=== PATIENT | female | born 1965 | race Caucasian/White ===

== ENCOUNTER 2017-01-14 18:42 | Inpatient (IN) | payer SELFPAY ==
[~2017-01-14] VITALS: Ht 154.9 cm; Wt 63.0 kg
[2017-01-14 18:48] VITALS: BP 143/78
--- NOTE | 2017-01-14 20:15 | NUR ---
52/F W/C/O PRESENT TO ER C/O ABDOMINAL PAIN x 5 DAYS. PT STATES SHE WAS SEEN AT URGENT CARE YESTERDAY. PAIN 8/10 ACHING AND RADIATING TO UPPER BACK. PT DENIES N/V/D. HX: NONE MEDS: FAMOTIDINE 20MG
--- NOTE | 2017-01-14 20:21 | NUR ---
PT TAKEN FOR CT SCAN VIA WHEELCHAIR.
[2017-01-14 20:48] LABS: BASOPHILS # (AUTO) 0.1 K/uL (0.00-0.22); BASOPHILS % (AUTO) 0.5 % (0.0-2.0); EOSINOPHILS # (AUTO) 0.1 K/uL (0-0.4); EOSINOPHILS % (AUTO) 0.6 % (0.0-4.0); HEMATOCRIT 36.7 % (36-48); HEMOGLOBIN 12.4 g/dL (12.0-16.0); LYMPHOCYTES # (AUTO) 0.8 K/uL (2.5-16.5); LYMPHOCYTES % (AUTO) 6.2 % (20.5-51.1); MEAN CORPUSCULAR HEMOGLOBIN 29 pg (27-31); MEAN CORPUSCULAR HGB CONC 34 g/dL (33-37); MEAN CORPUSCULAR VOLUME 86 fL (80-94); MONOCYTES # (AUTO) 0.6 K/uL (0.8-1.0); MONOCYTES % (AUTO) 4.8 % (1.7-9.3); NEUTROPHILS # (AUTO) 11.9 K/uL (1.8-7.7); NEUTROPHILS % (AUTO) 87.9 % (42.2-75.2); PLATELET COUNT (AUTO) 295 K/uL (140-450); RED BLOOD CELL COUNT(AUTO) 4.28 MIL/uL (4.20-5.40); RED CELL DISTRIBUTION WIDTH 12.1 % (11.6-13.7); WHITE BLOOD COUNT (AUTO) 13.5 K/uL (4.8-10.8)
--- NOTE | 2017-01-14 20:52 | NUR ---
PT RESTING IN BED, NO S/S OF DISTRESS NOTED AT THE MOMENT. WILL CONT TO MONITOR.FAMILY AT BEDSIDE.
[2017-01-14] MEDS ORDERED: ONDANSETRON 4 MG/2 ML VIAL IVP ONE (21:00)
[2017-01-14] MEDS ORDERED: MORPHINE SULFATE 4 MG/ML SYR IVP ONE (21:00)
[2017-01-14] MEDS ORDERED: metroNIDAZOLE 500 MG/NS PREMIX 100 ML IV ONE (21:00)
[2017-01-14] MEDS ORDERED: NACL 0.9% 1,000 ML IV ONE (21:00)
[2017-01-14 21:05] LABS: ANION GAP 15.3 (8-16); CREATININE 0.7 mg/dL (0.6-1.3); POTASSIUM 3.3 mmol/L (3.5-5.1)
[2017-01-14 21:12] LABS: ALBUMIN 3.7 g/dL (3.4-5.0); TOTAL BILIRUBIN 0.9 mg/dL (0.0-1.0)
[2017-01-14] MEDS ORDERED: cefTRIAXone 1,000 MG VIAL ONE (21:15)
[2017-01-14] MEDS ORDERED: KETOROLAC 15 MG/ML VIAL IVP ONE (21:15)
[2017-01-14 21:29] LABS: APPEARANCE,URINE CLEAR (CLEAR); BILIRUBIN,URINE NEGATIVE (NEGATIVE); BLOOD, URINE 2+ (NEGATIVE); COLOR,URINE YELLOW (YELLOW); LEUKOCYTE ESTERASE ,URINE NEGATIVE (NEGATIVE); NITRITE, URINE NEGATIVE (NEGATIVE); UGLUCOSE NEGATIVE (NEGATIVE)
--- NOTE | 2017-01-14 21:47 | NUR ---
RESIDENT EVALUATING PT AT BEDSIDE.
[2017-01-14 21:57] LABS: RBC,URINE 11-20 (MOD) /HPF (0-5); WBC,URINE 0-5 (RARE) /HPF (0-5)
--- NOTE | 2017-01-14 22:10 | NUR ---
Patient will be admitted to care of DR TRIANA. Admited to TELEMETRY/ICU 3. Will go to room ICU 3. Belongings list completed. Report to CARY ADAN.
--- NOTE | 2017-01-14 22:22 | NUR ---
PT TRASFERED TO FLOOR VIA [facility], ACCOMPANIED BY CHARGE NURSE AND EMT.
--- NOTE | 2017-01-14 22:29 | NUR ---
PT IS BEING ADMITTED TO ICU BED 3 VIA GURNEY WITH 2 ER STAFF. PT IS ABLE TO WALK FROM THE GURNEY TO THE ICU BED WITH MINIMAL ASSISTANCE. WILL START ADMISSION ASSESSMENT.
--- NOTE | 2017-01-14 23:08 | NUR ---
PT'S AT BED SIDE. COMPLETED ADMISSION ASSESSMENT.
[2017-01-15] VITALS: BP 118/81
--- NOTE | 2017-01-15 | NUR ---
PT SLEEPING. ON CARDIAC MONITORING AND STABLE. CALL LIGHT IN REACH. BED TO THE LOWEST POSITION. WILL CONTINUE TO MONITOR.
[2017-01-15] MEDS ORDERED: HYDROcodone/APAP 7.5/325 MG 1 TAB PO PRN (01:25)
[2017-01-15] MEDS ORDERED: ACETAMINOPHEN 325 MG TAB PO PRN (01:25)
[2017-01-15] MEDS ORDERED: MORPHINE SULFATE 2 MG/ML SYR IVP PRN (01:25)
[2017-01-15] MEDS ORDERED: ONDANSETRON 4 MG/2 ML VIAL IM/IVP PRN (01:25)
[2017-01-15] MEDS ORDERED: DOCUSATE SODIUM 100 MG GELCAP PO PRN (01:25)
[2017-01-15 01:58] LABS: FREE T4 (FREE THYROXINE) 1.64 ng/dL (0.76-1.46); PHOSPHORUS 3.1 mg/dL (2.5-4.9); THYROID STIMULATING HORMONE 3.38 uIU/mL (0.34-3.74)
[2017-01-15] MEDS: NACL 0.9% 1,000 ML IV SCH ×3 (03:20→20:10)
--- NOTE | 2017-01-15 03:23 | NUR ---
NEW ORDERS RECEIVED FROM DR. ROMAN. PT MADE AWARE. PT IVF STARTED ORDERED TO LEFT AC PERIPHERAL LINE. PATENT AND NO COMPLICATIONS NOTED. WILL CONTINUE TO MONITOR.
[2017-01-15 04:00] VITALS: BP 111/74
[2017-01-15 05:10] LABS: BASOPHILS # (AUTO) 0.1 K/uL (0.00-0.22); BASOPHILS % (AUTO) 1.5 % (0.0-2.0); EOSINOPHILS # (AUTO) 0.1 K/uL (0-0.4); EOSINOPHILS % (AUTO) 1.4 % (0.0-4.0); HEMATOCRIT 33.8 % (36-48); HEMOGLOBIN 11.1 g/dL (12.0-16.0); LYMPHOCYTES # (AUTO) 1.3 K/uL (2.5-16.5); MEAN CORPUSCULAR HEMOGLOBIN 29 pg (27-31); MEAN CORPUSCULAR HGB CONC 33 g/dL (33-37); MEAN CORPUSCULAR VOLUME 88 fL (80-94); MONOCYTES # (AUTO) 0.5 K/uL (0.8-1.0); MONOCYTES % (AUTO) 9.7 % (1.7-9.3); NEUTROPHILS # (AUTO) 3.6 K/uL (1.8-7.7); NEUTROPHILS % (AUTO) 64.4 % (42.2-75.2); PLATELET COUNT (AUTO) 240 K/uL (140-450); RED BLOOD CELL COUNT(AUTO) 3.85 MIL/uL (4.20-5.40); RED CELL DISTRIBUTION WIDTH 12.4 % (11.6-13.7); WHITE BLOOD COUNT (AUTO) 5.6 K/uL (4.8-10.8)
--- NOTE | 2017-01-15 05:23 | NUR ---
PT SLEEPING. CONTINUING WITH CARDIAC MONITORING. IVF RUNNING TO LEFT AC PERIPHERAL LINE WITHOUT ANY COMPLICATION. NO ACUTE DISTRESS NOTED. BED IS TO THE LOWEST POSITION AND CALL LIGHT IN REACH. WILL CONTINUE TO MONITOR.
[2017-01-15 05:52] LABS: ANION GAP 12.4 (8-16); CARBON DIOXIDE 25.4 mmol/L (21-32); CREATININE 0.6 mg/dL (0.6-1.3); POTASSIUM 3.8 mmol/L (3.5-5.1); PROTHROMBIN TIME 9.9 secs (10.8-13.4)
--- NOTE | 2017-01-15 07:13 | NUR ---
GAVE REPORT TO CARY LOZANO FOR CONTINUITY OF CARE. PT HAS NO ACUTE DISTRESS AT THIS TIME.
--- NOTE | 2017-01-15 07:30 | NUR ---
RECEIVED REPORT FROM TELESERVICES REPRESENTATIVE RN, PT AWAKE, ALERT, AND ORIENTED. ON ROOM AIR, NO S/S OF RESPIRATORY DISTRESS NOTED. ABDOMEN SOFT, DENIES PAIN AT THIS TIME. IV SITE INTACT AND PATENT RUNNING NS AT 60 ML/HR. PT STATED " I HAVE WIRED FEELING IN MY STOMACH, IT IS NOT PAIN, MAY BE IT IS DUE TO THE ANTIBIOTICS". PT ABLE TO MOVE ALL HER EXTREMITIES, POC EXPLAINED TO PT, PT VERBALIZED UNDERSTANDING. WILL CONTINUE TO MONITOR.
[2017-01-15 08:00] VITALS: BP 114/71
--- NOTE | 2017-01-15 09:30 | NUR ---
EXPLAINED TO PT SHE MAY NEED SURGERY, PT WANTS TO TALK TO SURGEON REGARDING THE SURGERY. WILL PAGE .
--- NOTE | 2017-01-15 10:20 | NUR ---
AT BEDSIDE TO SPEAK WITH PT REGARDING SURGERY, TRANSLATION PHONE USED, VERIFICATION CLERK NUMBER [id number], EXPLAINED TO PT RISKS AND BENEFITS OF SURGERY, ALL PROCEDURES DISCUSSED, ALL QUESTIONS ANSWERED.
[2017-01-15 12:00] VITALS: BP 155/71
--- NOTE | 2017-01-15 12:00 | NUR ---
PT SIGNED CONSENT, NOTIFIED . PER , PT WILL HAVE SURGERY AT 0500PM
[2017-01-15] MEDS: PIPER/TAZO 3.375GM/D5W PREMIX 50 ML IV SCH ×2 (13:04→20:10)
[2017-01-15] MEDS ORDERED: POTASSIUM CHLORIDE 10 MEQ TABER PO SCH (14:00)
--- NOTE | 2017-01-15 14:59 | NUR ---
PT RESTING IN BED, NO S/S OF RESPIRATORY DISTRESS NOTED. NO C/O PAIN AT THIS TIME. WILL CONTINUE TO MONITOR.
[2017-01-15 15:57] VITALS: BP 135/79
--- NOTE | 2017-01-15 16:15 | NUR ---
PT RESTING IN BED, AT BEDSIDE, NOTIFIED PT SHE WILL HAVE SURGERY TOMORROW MORNING AT 0830 AM PER . PT VERBALIZED UNDERSTANDING.
--- NOTE | 2017-01-15 18:15 | NUR ---
PT AWAKE, ALERT, AND ORIENTED. NO S/S OF RESPIRATORY DISTRESS NOTED. PT'S AT BEDSIDE.
--- NOTE | 2017-01-15 19:09 | NUR ---
REPORT GIVEN TO PICKER OPERATOR RN. PT IN STABLE CONDITION AT THIS TIME. HR 68, BP 139/98. O2 SAT 99%
--- NOTE | 2017-01-15 19:30 | NUR ---
ASSUMED CARE OF PT.INITIAL ASSESSMENT COMPLETED.PT AWAKE ALERT AND ORIENTED X4.SR ON MONITOR.ON ROOM AIR.NO SOB NOTED.PERIPHERAL IV TO LT AC G20 INTACT INFUSING ORDERED IVF.PT ABLE TO MEDINA WITHOUT DIFFICULTY.DENIES N/V,DENIES PAIN.ABLE TO VOID FREELY.SKIN INTACT
[2017-01-15 20:00] VITALS: BP 137/75
--- NOTE | 2017-01-15 22:06 | NUR ---
PT STILL AWAKE, AT BEDSIDE. VOIDED FREELY USING BEDSIDE COMMODE.DENIES PAIN.NO SOB NOTED.
[2017-01-16] VITALS: BP 138/75
--- NOTE | 2017-01-16 | NUR ---
PT AWAKE; AT BEDSIDE.DENIES SOB.DENIES PAIN.
--- NOTE | 2017-01-16 03:26 | NUR ---
PT ASLEEP.NO S/SX OF RESP DISTRESS NOTED.SR ON MONITOR.NO SIGNS OF PAIN NOTED.
[2017-01-16 04:00] VITALS: BP 109/63
[2017-01-16] MEDS: PIPER/TAZO 3.375GM/D5W PREMIX 50 ML IV SCH ×3 (04:51→20:29)
[2017-01-16 06:15] LABS: T4 (THYROXINE) 12.4 ug/dL (4.5-12.0)
--- NOTE | 2017-01-16 06:23 | NUR ---
PT ASLEEP;EASILY AROUSABLE.DENIES PAIN THIS SHIFT.PERIPHERAL IV INTACT INFUSING ORDERED IVF.PT ABLE TO SELF TURN.
[2017-01-16 08:30] VITALS: BP 113/73
--- NOTE | 2017-01-16 08:30 | NUR ---
ASSUMED CARE OF PT FROM DONAL TOWNSEND.PT AWAKE, ALERT, AND ORIENTED. ON ROOM AIR, NO S/S OF RESPIRATORY DISTRESS NOTED. ABDOMEN SOFT, DENIES PAIN AT THIS TIME. IV SITE TO LEFT AC # 20 INTACT AND PATENT RUNNING NS AT 60 ML/HR. PT WAS SCHEDULED FOR SURGERY TODAY, PRE-OP CARE AND INSTRUCTION DONE. PT ABLE TO MOVE ALL HER EXTREMITIES, POC EXPLAINED TO PT, PT VERBALIZED UNDERSTANDING. CALL LIGHT IN REACH, WILL CONTINUE TO MONITOR.
[2017-01-16] MEDS ORDERED: ONDANSETRON 4 MG/2 ML VIAL ONE (10:05)
[2017-01-16] MEDS ORDERED: DEXAMETHASONE 4 MG/ML VIAL ONE (10:05)
[2017-01-16] MEDS ORDERED: SEVOFLURANE 250 ML BTL INH ONE (10:05)
[2017-01-16] MEDS ORDERED: SUCCINYLCHOLINE CHLORIDE 200 MG/10 ML VIAL IVP ONE (10:05)
[2017-01-16] MEDS ORDERED: ROCURONIUM 50 MG/5 ML VIAL IV ONE (10:05)
[2017-01-16] MEDS ORDERED: PROPOFOL 200 MG/20 ML VIAL IV ONE (10:05)
--- NOTE | 2017-01-16 10:10 | NUR ---
PT AOX4, NO SOB, ROOM AIR. LEFT FOR SURGERY, ACCOMPANIED WITH OR NURSE.
[2017-01-16] MEDS ORDERED: MIDAZOLAM 2 MG/2 ML VIAL ONE (10:24)
[2017-01-16] MEDS ORDERED: fentaNYL 0.05 MG/ML VIAL ONE (10:25)
[2017-01-16] MEDS ORDERED: MEPERIDINE 50 MG/ML SYR ONE (10:25)
[2017-01-16] MEDS ORDERED: BUPIVACAINE-MPF 0.25% 30 ML VIAL INJ ONE (10:26)
[2017-01-16] MEDS ORDERED: LACTATED RINGERS 1,000 ML IV SCH (10:49)
[2017-01-16] MEDS ORDERED: HYDROmorphone 1 MG/ML AMP IVP PRN (10:50)
[2017-01-16] MEDS ORDERED: ONDANSETRON 4 MG/2 ML VIAL IVP PRN (10:50)
[2017-01-16] MEDS ORDERED: MEPERIDINE 25 MG/ML SYR IVP PRN (10:50)
[2017-01-16] MEDS ORDERED: diphenhydrAMINE 50 MG/ML VIAL IVP PRN (10:50)
--- NOTE | 2017-01-16 12:50 | NUR ---
PT BACK TO ICU, PT IS SLEEPY BUT EASILY AWAKING BY ASSESSMENT. ORIENTED PT SHE IS BACK TO ICU AFTER SURGERY. VITALS STABLE AT THIS TIME.
[2017-01-16] MEDS: DEXT 5% / NACL 0.45% 1,000 ML IV SCH ×2 (13:00→22:03)
--- NOTE | 2017-01-16 15:39 | NUR ---
PT IS AWAKE, ALERT, AND ORIENTED AT THIS TIME. NO S/S OF RESPIRATORY DISTRESS NOTED. PT DENIES PAIN AT THIS TIME.
[2017-01-16 16:00] VITALS: BP 122/75
--- NOTE | 2017-01-16 17:27 | NUR ---
ASSISTED PT GET OUT OF BED AND AMBULATE, PT HAS STEADY GAIT, NO SOB.
--- NOTE | 2017-01-16 18:39 | NUR ---
PT RESTING IN BED, DINNER TRAY ATE 75%. PT'S AT BEDSIDE.
[2017-01-16 20:00] VITALS: BP 117/73
--- NOTE | 2017-01-16 21:50 | NUR ---
pt transferred to telemetry unit in stable condition.monitor attached.no sob on room air.peripheral iv intact. pts at bedside.to room 112 Lucie richard rn also in the room.
--- NOTE | 2017-01-16 21:50 | NUR ---
RECEIVED PT FROM ICU, CARY MANSFIELD . AWAKE, ALERT AND ORIENTED X4. AMBULATORY WITH SOME ASSIST. ON TELE MONITOR. S/P LAP HAIM . 5X SMALL INCISIONS, ON THE LOWER ABDOMEN. WITH GLUE , INFORMATION SERVICES ASSISTANT. NO REDNESS AND BLEEDING NOTED. WITH IV ACCESS ON LT AC#20. CLEAR AND PATENT. . PLAN OF CARE DISCUSSED AN VERBALIZED UNDERSTANDING. CALL LIGHT PLACED WITHIN EASY REACH. WILL CONTINUE TO MONITOR.
--- NOTE | 2017-01-16 23:00 | NUR ---
AWAKE,NO C/O ANY DISCOMFORT NOTED. WILL CONTINUE TO MONITOR.
[2017-01-17 00:08] VITALS: BP 130/72
--- NOTE | 2017-01-17 01:10 | NUR ---
MADE ROUNDS. PT SLEEPING. NO S/S FO ANY PAIN NOTED. WILL CONTINUE TO MONITOR.
--- NOTE | 2017-01-17 03:00 | NUR ---
MADE ROUNDS . ASLEEP. NO DISCOMFORT NOTED.
[2017-01-17 04:15] VITALS: BP 125/80
--- NOTE | 2017-01-17 04:30 | NUR ---
ASSISTED UP TO THE BATHROOM. VOIDED. NO C/O ANY DISCOMFORT NOTED.
[2017-01-17] MEDS: PIPER/TAZO 3.375GM/D5W PREMIX 50 ML IV SCH ×3 (05:31→21:44)
[2017-01-17 05:43] LABS: BASOPHILS # (AUTO) 0.1 K/uL (0.00-0.22); EOSINOPHILS # (AUTO) 0.1 K/uL (0-0.4); EOSINOPHILS % (AUTO) 0.8 % (0.0-4.0); HEMATOCRIT 34.9 % (36-48); HEMOGLOBIN 11.7 g/dL (12.0-16.0); LYMPHOCYTES # (AUTO) 1.7 K/uL (2.5-16.5); LYMPHOCYTES % (AUTO) 16.8 % (20.5-51.1); MEAN CORPUSCULAR HEMOGLOBIN 29 pg (27-31); MEAN CORPUSCULAR HGB CONC 33 g/dL (33-37); MEAN CORPUSCULAR VOLUME 87 fL (80-94); MONOCYTES # (AUTO) 0.7 K/uL (0.8-1.0); MONOCYTES % (AUTO) 6.6 % (1.7-9.3); NEUTROPHILS # (AUTO) 7.4 K/uL (1.8-7.7); NEUTROPHILS % (AUTO) 74.8 % (42.2-75.2); PLATELET COUNT (AUTO) 307 K/uL (140-450); RED BLOOD CELL COUNT(AUTO) 4.02 MIL/uL (4.20-5.40); RED CELL DISTRIBUTION WIDTH 12.4 % (11.6-13.7)
--- NOTE | 2017-01-17 06:30 | NUR ---
MADE ROUNDS. ASLEEP. NO S/S OF ANY DISCOMFORT.
[2017-01-17 06:38] LABS: ALBUMIN 2.8 g/dL (3.4-5.0); ANION GAP 10.6 (8-16); CARBON DIOXIDE 24.2 mmol/L (21-32); CREATININE 0.7 mg/dL (0.6-1.3); POTASSIUM 3.8 mmol/L (3.5-5.1); TOTAL BILIRUBIN 0.4 mg/dL (0.0-1.0)
--- NOTE | 2017-01-17 07:20 | NUR ---
ENDORSED PT IN STABLE CONDITION TO AM NURSE FOR CONTINUITY OF CARE.
--- NOTE | 2017-01-17 07:21 | NUR ---
RECEIVED REPORT FROM NIGHT NURSE CAM AT PT BEDSIDE. PATIENT RESTING IN BED. ALERT AND ORIENTED. FOLLOWS COMMANDS. S/P LAP HAIM. DENIES ABDOMINAL PAIN, DISCOMFORT WHEN SITTING UP OR WALKING. PATIENT HAS 5X ABDOMINAL INCISIONS, GLUED INTACT. IV SITE PATENT AND INTACT. MADE AWARE OF UPCOMING PLANS AND PROCEDURES. NO S/S OF ACUTE DISTRESS.
[2017-01-17 08:00] VITALS: BP 111/70
--- NOTE | 2017-01-17 08:00 | NUR ---
Patient's Plan of Care was discussed and reviewed with A P MECHANIC: GUERDA
--- NOTE | 2017-01-17 08:15 | NUR ---
ASSISTED PATIENT IN AMBULATION. PATIENT TOLERATED PO BREAKFAST LIQUID DIET. SCDS IN PLACE. PATIENT VOIDED.
[2017-01-17] MEDS: DEXT 5% / NACL 0.45% 1,000 ML IV SCH ×2 (10:00→17:50)
--- NOTE | 2017-01-17 10:10 | NUR ---
PATIENT ASSISTED IN AMBULATION AROUND NURSING UNIT. TOLERATED WELL. DENIES NAUSEA, DIZZINESS. INCISIONS INTACT. ASSISTED PT BACK IN BED, PT RESTING, NO S/S OF ACUTE DISTRESS.
--- NOTE | 2017-01-17 12:20 | NUR ---
PATIENT'S DIET ORDER CHANGED PER MD. PATIENT UNABLE TO TOLERATE REGULAR DIET AT THIS TIME, STATED NO APPETITE. PATIENT SITTING UP AT BEDSIDE, NO S/S OF ACUTE DISTRESS NOTED.
--- NOTE | 2017-01-17 14:55 | NUR ---
ENDORSED PLAN OF CARE TO INTERNATIONAL LOGISTICS MANAGER GUERDA Hunter AT PT BEDSIDE. NO S/S OF ACUTE DISTRESS NOTED.
--- NOTE | 2017-01-17 15:20 | NUR ---
PT IS AMB ON UNIT AND SHOWS NO S/S OF ACUTE DISTRESS ON ROOM AIR. NOTED [address] WITH NO S/S OF INFECTIONS. PT DENIES PAIN AND SOB. PT AWARE OF POC FOR TODAY. WILL CONTINUE TO MONITOR.
[2017-01-17 16:00] VITALS: BP 133/74
--- NOTE | 2017-01-17 16:10 | NUR ---
PATIENT AMB ON UNIT STILL WITH PRESENT AT SIDE.
--- NOTE | 2017-01-17 17:07 | NUR ---
PT IS AMB ON UNIT WITH PRESENT AT SIDE. PT SHOWS NO S/S OF ACUTE DISTRESS ON ROOM AIR. PT DENIES PAIN.
--- NOTE | 2017-01-17 19:25 | NUR ---
GAVE REPORT TO NIGHT NURSE. PT AAOX4 AND SHOWS NO S/S OF ACUTE DISTRESS ON ROOM AIR. PT ENDORSED IN STABLE CONDITION.
--- NOTE | 2017-01-17 19:26 | NUR ---
RECEIVED REPORT FROM DAY NURSE, PT IS IN STABLE CONDITION. PT IS AAOX4, PT IS ON RA, PT HAS 5X ABD INCISION, GLUED. PT HAS IV TO L AC 20 G, PATENT AND INTACT. RESPIRATIONS ARE EVEN AND UNLABORED, BOWEL SOUNDS PRESENT. INITIAL ASSESSMENT COMPLETED, PLAN OF CARE DISCUSSED WITH PT. PT VERBALIZED UNDERSTANDING. ALL SAFETY PRECAUTIONS MET, CALL LIGHT WITHIN REACH, WILL CONTINUE TO MONITOR.
--- NOTE | 2017-01-17 19:59 | NUR ---
PT AMBULATING AROUND THE HALLWAYS, NO S/S OF DISTRESS NOTED.
[2017-01-17 20:00] VITALS: BP 155/91
--- NOTE | 2017-01-17 21:50 | NUR ---
PTS DUE MEDICATIONS WERE GIVEN, PT TOLERATED WELL.
--- NOTE | 2017-01-17 23:30 | NUR ---
PT AMBULATING AROUND THE HALLWAY, NO S/S OF DISTRESS NOTED.
[2017-01-18] VITALS: BP 132/71
--- NOTE | 2017-01-18 00:10 | NUR ---
PT BACK IN BED WITH SCDS APPLIED. CALL LIGHT IS WITHIN REACH, ALL SAFETY PRECAUTIONS MET, WILL CONTINUE TO MONITOR,
--- NOTE | 2017-01-18 01:10 | NUR ---
PT STATES SHE IS FEELING COLD AND SHAKY, TEMP CHECKED AND WNL, BS CHECKED AND WNL. NO SWELLING OR REDNESS NOTED AT INCISION SITE. DR. ROMAN MADE AWARE WILL CONTINUE TO MONITOR.
[2017-01-18] MEDS: DEXT 5% / NACL 0.45% 1,000 ML IV SCH (01:38)
[2017-01-18] MEDS: PIPER/TAZO 3.375GM/D5W PREMIX 50 ML IV SCH ×2 (05:29→12:07)
[2017-01-18 06:21] LABS: BASOPHILS # (AUTO) 0.1 K/uL (0.00-0.22); BASOPHILS % (AUTO) 0.8 % (0.0-2.0); EOSINOPHILS # (AUTO) 0.1 K/uL (0-0.4); HEMATOCRIT 35.8 % (36-48); LYMPHOCYTES # (AUTO) 1.4 K/uL (2.5-16.5); LYMPHOCYTES % (AUTO) 15.4 % (20.5-51.1); MEAN CORPUSCULAR HEMOGLOBIN 29 pg (27-31); MEAN CORPUSCULAR HGB CONC 34 g/dL (33-37); MEAN CORPUSCULAR VOLUME 87 fL (80-94); MONOCYTES # (AUTO) 0.6 K/uL (0.8-1.0); MONOCYTES % (AUTO) 6.7 % (1.7-9.3); NEUTROPHILS # (AUTO) 6.7 K/uL (1.8-7.7); NEUTROPHILS % (AUTO) 76.1 % (42.2-75.2); PLATELET COUNT (AUTO) 334 K/uL (140-450); RED BLOOD CELL COUNT(AUTO) 4.11 MIL/uL (4.20-5.40); RED CELL DISTRIBUTION WIDTH 12.3 % (11.6-13.7); WHITE BLOOD COUNT (AUTO) 8.9 K/uL (4.8-10.8)
[2017-01-18 06:43] LABS: ALBUMIN 3.2 g/dL (3.4-5.0); CARBON DIOXIDE 28.6 mmol/L (21-32); CREATININE 0.7 mg/dL (0.6-1.3); POTASSIUM 3.6 mmol/L (3.5-5.1); TOTAL BILIRUBIN 0.3 mg/dL (0.0-1.0)
--- NOTE | 2017-01-18 07:41 | NUR ---
ENDORSED PLAN OF CARE TO DAY NURSE FOR CONTINUITY OF CARE, NO S/S OF DISTRESS NOTED
--- NOTE | 2017-01-18 07:42 | NUR ---
RECEIVED REPORT FROM NIGHT RN AT PT BEDSIDE. PT SITTING UP IN BED. NO S/S OF ACUTE DISTRESS. IV SITE PATENT AND INTACT. DENIES DISCOMFORT. ABD INCISIONS DRY AND INTACT. CALL LIGHT WITHIN REACH. AMBULATORY.
[2017-01-18 08:00] VITALS: BP 117/76
[2017-01-18] MEDS ORDERED: CEPH500C16 PO (10:50)
[2017-01-18] MEDS ORDERED: LACT1CAP65 PO (10:50)
--- NOTE | 2017-01-18 12:00 | NUR ---
PT TOLERATED PO MEALS. NO S/S OF ACUTE DISTRESS. DENIES N/V. MD SPOKE WITH PATIENT REGARDING DISCHARGE PLANNING. AMBULATORY. AWAITING TO PICK PATIENT UP.
--- NOTE | 2017-01-18 14:00 | NUR ---
PATIENT TO BE DISCHARGED HOME. AT BEDSIDE TO TAKE PATIENT HOME. PATIENT IV REMOVED, CANULA INTACT. NO S/S OF ACUTE DISTRESS. ABDOMINAL INCISIONS DRY AND INTACT, GLUED. PATIENT AMBULATORY. DISCHARGE INSTRUCTIONS GIVEN WITH VERBALIZED UNDERSTANDING. F/U APPOINTMENTS MADE BY PCP. PATIENT WHEELED TO FRONT LOBBY TO .
== END 2017-01-18 14:00 | disposition home or self-care (01) | DRG 419 ==
LOC: MED 18:42 → MIC 21:24 → MTU 01-16 18:57
PROVIDERS: ADMIT Family Medicine Sports Medicine; ATTEND Family Medicine Sports Medicine
PROC: 0FT44ZZ Resection of Gallbladder, Percutaneous Endoscopic Approach (ICD-10-PCS; principal; 2017-01-16 10:00)
DX: K80.00 Calculus of gallbladder with acute cholecystitis without obstruction (principal); E87.6 Hypokalemia; D64.9 Anemia, unspecified; K57.90 Diverticulosis of intestine, part unspecified, without perforation or abscess without bleeding; D72.829 Elevated white blood cell count, unspecified
CPT/HCPCS: 36415; 71010; 76705; 76770; 80048; 80053; 81001; 81025; 82948; 83036; 83605; 83690; 83735; 84100; 84436; 84439; 84443; 84479; 84484; 84702; 85025; 85610; 85730; 86886; 86900; 86901; 87040; 87081; 93005; 96365; 96367; 96375; 99285; J0330; J0696; J1100; J1885; J2175; J2250; J2270; J2405; J2543; J2704; J3010; J3490; J7030; J7042; J7060; Q0092